=== PATIENT | female | born 1990 | race Caucasian/White ===

== ENCOUNTER 2017-11-09 23:03 | Inpatient (IN) | payer MEDICAID ==
[~2017-11-09] VITALS: Ht 165.1 cm; Wt 79.8 kg
[2017-11-09] MEDS ORDERED: Magnesium 1GM/D5W 100ML PREMIX 200 ML IV ONE (23:11)
[2017-11-09] MEDS ORDERED: IPRATROPIUM NEB FS 0.5 MG/2.5 ML AMPUL.NEB ONE (23:17)
[2017-11-09] MEDS ORDERED: ALBUTEROL FS 2.5 MG/3 ML VIAL.NEB ONE (23:17)
--- NOTE | 2017-11-09 23:20 | NUR ---
VIRGEN 39 FROM [employer] THRU FOR SOB. HX ASTHMA, PER RA GAVE 0.5 EPI IM AND BRETHING TX VIA C PAP. PT NOTED TO BE AAOX2 IN SEVERE ACUTE DISTRESS. PT NOTED TO BE DIAPHORETIC AND AGITTATED. PT NEEDED TO BE HELD DOWN BY PARAMEDICS AND STAFF MEMBERS TO START AN IV PER MD MELÉNDEZ ORDERS. PT NOTED TO BE TACHYPNIC AT 32BREATHS PER MINUTE AND SPO2 91 ON RA. PT PLACED ON NC 3L/M PER MD'S ORDERS. PT MEDICATED PER MD'S ORDERS. RT BEDSIDE FOR BREATHING TREATMENT. BEDSIDE. PT PLACED ON GRINDING WHEEL OPERATOR AND POX. PT PLACED IN GOWN. PT SAFETY AND COMFORT MEASURES IN PLACE. WILL CONTINUE TO MONITO PT.
[2017-11-09 23:30] LABS: BASOPHILS # (AUTO) 0.1 /CMM (0.0-0.2); BASOPHILS % (AUTO) 0.5 % (0.0-2.0); EOSINOPHILS % (AUTO) 6.6 % (0.0-6.0); HEMATOCRIT 41 % (33-45); HEMOGLOBIN 13.6 g/dL (11.5-14.8); LYMPHOCYTES # (AUTO) 6.2 /CMM (0.8-4.8); LYMPHOCYTES % (AUTO) 32.8 % (20.0-44.0); MEAN CORPUSCULAR HEMOGLOBIN 27 PG (26.0-33.0); MEAN CORPUSCULAR HGB CONC 33 g/dl (31.0-36.0); MEAN CORPUSCULAR VOLUME 81 fL (82-100); MONOCYTES # (AUTO) 0.6 /CMM (0.1-1.30); MONOCYTES % (AUTO) 3.2 % (2.0-12.0); NEUTROPHILS # (AUTO) 10.7 /CMM (1.8-8.9); NEUTROPHILS % (AUTO) 56.9 % (43.0-81.0); PLATELET COUNT (AUTO) 344 /CMM (150-450); RDW COEFFICIENT OF VARIATION 14.7 (11.5-15.0); RED BLOOD CELL COUNT(AUTO) 5.11 MIL/uL (4.0-5.2); WHITE BLOOD COUNT (AUTO) 18.8 K/uL (4.3-11.0)
[2017-11-09] MEDS ORDERED: IV NS 0.9% 1,000 ML BAG IV ONE ×2 (23:30)
[2017-11-09] MEDS ORDERED: ALBUTEROL FS 2.5 MG/3 ML VIAL.NEB CONTNEB ONE (23:30)
[2017-11-09] MEDS ORDERED: FAMOTIDINE/PF INJ 20 MG/2 ML VIAL IV ONE ×2 (23:30)
[2017-11-09] MEDS ORDERED: IPRATROPIUM NEB FS 0.5 MG/2.5 ML AMPUL.NEB NEB ONE (23:30)
[2017-11-09] MEDS ORDERED: DEXAMETHASONE SOD PHOSPHATE 4 MG/ML VIAL IM ONE (23:30)
[2017-11-09] MEDS ORDERED: EPINEPHRINE (1:1000) MDV 30 MG/30ML VIAL SUBCUT ONE (23:30)
[2017-11-09 23:41] LABS: CALCIUM, SERUM 8.4 mg/dL (8.5-10.1); CREATININE 0.9 mg/dL (0.6-1.3); POTASSIUM 3.7 mmol/L (3.5-5.1)
[2017-11-09 23:47] LABS: ALBUMIN 3.5 g/dL (3.4-5.0); BILIRUBIN,TOTAL 0.2 mg/dL (0.2-1.0)
--- NOTE | 2017-11-10 00:01 | NUR ---
PT NOTED TO BE IN NO DISTRESS AT THIS TIME. VSS. PT SAFETY AND COMFORT MEASURES IN PLACE. PT IS AAOX4. SKIN WNL. PT STATES HER BREATHING HAS IMPROVED. BREATH SOUNDS AUSCULTATED IN ALL [place]. MADE AWARE. WILL CONTINUE TO MONITOR PT
[2017-11-10] MEDS ORDERED: EPINEPHRINE (1:1000) 1 MG/ML AMPUL ONE (00:04)
[2017-11-10] MEDS ORDERED: DEXAMETHASONE SOD PHOSPHATE 10 MG/ML VIAL ONE (00:04)
[2017-11-10] MEDS ORDERED: Magnesium 1GM/D5W 100ML PREMIX 200 ML IV ONE (00:04)
--- NOTE | 2017-11-10 00:30 | NUR ---
PER [facility] AIR[employer]FT NAVIGATOR DASIA "YOU CAN ADMIT HERE IN YOUR HOSPITAL AND I GIVE YOU A VERBAL AUTHORIZATION UNDER [employer]".
[2017-11-10] MEDS ORDERED: CHOL20004 PO (00:34)
[2017-11-10] MEDS ORDERED: ALBU0.633 NEB (00:34)
--- NOTE | 2017-11-10 00:34 | NUR ---
MD ESTRADA SPEAKING WITH MD CARNEY
--- NOTE | 2017-11-10 00:51 | NUR ---
REPORT GIVEN TO PREPARING BOX TENDERCORTEZ TENORIO FOR IGLES[place]
[2017-11-10 01:30] VITALS: BP 137/65
[2017-11-10] MEDS ORDERED: ALBUTEROL FS 2.5 MG/0.5 ML VIAL.NEB NEB PRN (01:30)
[2017-11-10] MEDS ORDERED: IPRATROPIUM NEB FS 0.5 MG/2.5 ML AMPUL.NEB NEB PRN (01:30)
[2017-11-10] MEDS ORDERED: ACETAMINOPHEN 650 MG/20.3 ML UDC PO PRN (01:30)
[2017-11-10] MEDS: ALBUTEROL FS 2.5 MG/0.5 ML VIAL.NEB NEB SCH ×3 (01:30→12:32)
[2017-11-10] MEDS: IPRATROPIUM NEB FS 0.5 MG/2.5 ML AMPUL.NEB NEB SCH ×3 (01:30→12:32)
[2017-11-10] MEDS ORDERED: Potassium Chloride 20 MEQ in IV D5/0.45 NACL 1,000 ML IV PRN (01:30)
--- NOTE | 2017-11-10 02:05 | NUR ---
PT REFUSED BREATHING TX. SHE SAID SHE WILL TAKE THE 7:30AM TX. RN NOTIFIED.
[2017-11-10] MEDS ORDERED: IV PREMIX D5 1/2NS + KCL 1,000 ML IV ONE (02:34)
[2017-11-10 04:00] VITALS: BP 112/65
[2017-11-10] MEDS ORDERED: methylPREDNISolone SOD SUCC 125 MG/2ML VIAL IV SCH ×2 (05:00→13:00)
[2017-11-10 06:08] LABS: HEMATOCRIT 40 % (33-45); HEMOGLOBIN 13.1 g/dL (11.5-14.8); LYMPHOCYTES # (AUTO) 0.6 /CMM (0.8-4.8); LYMPHOCYTES % (AUTO) 3.8 % (20.0-44.0); MEAN CORPUSCULAR HEMOGLOBIN 27 PG (26.0-33.0); MEAN CORPUSCULAR HGB CONC 33 g/dl (31.0-36.0); MEAN CORPUSCULAR VOLUME 81 fL (82-100); MONOCYTES # (AUTO) 0.1 /CMM (0.1-1.30); MONOCYTES % (AUTO) 0.3 % (2.0-12.0); NEUTROPHILS # (AUTO) 15.6 /CMM (1.8-8.9); NEUTROPHILS % (AUTO) 95.9 % (43.0-81.0); PLATELET COUNT (AUTO) 275 /CMM (150-450); RDW COEFFICIENT OF VARIATION 14.9 (11.5-15.0); RED BLOOD CELL COUNT(AUTO) 4.89 MIL/uL (4.0-5.2); WHITE BLOOD COUNT (AUTO) 16.3 K/uL (4.3-11.0)
[2017-11-10 06:23] LABS: CALCIUM, SERUM 8.9 mg/dL (8.5-10.1); CREATININE 0.9 mg/dL (0.6-1.3); POTASSIUM 4.3 mmol/L (3.5-5.1)
--- NOTE | 2017-11-10 07:15 | NUR ---
[employer] INVESTIGATOR INITIAL NOTES PT COMFORTABLE, RESTING IN BED, AWAKE AND ORIENTED X4 T[place] SPEAKING, ON RA SAT ABOVE 95%, NO DISTRESS OR SOB NOTED AT THIS TIME, RT AC 18 G IV SITE RUNNING FLUIDS WITH NO INFILTRATION OR REDNESS NOTED AT THIS TIME, PT STATES WOULD LIKE TO GO HOME SOON POSSIBLE, BED LOW AND LOCKED, SIDE RAILS X2, CALL LIGHT WITHIN REACH, WILL CONTINUE TO MONITOR.
[2017-11-10] MEDS ORDERED: ALBU18HF2 IH (07:37)
[2017-11-10] MEDS ORDERED: CHOL100044 PO (07:37)
[2017-11-10] MEDS ORDERED: ALBU2.5V13 IH (07:37)
--- NOTE | 2017-11-10 07:51 | NUR ---
RN/TELE NOTES: NO ACUTE CHANGES NOTED DURING THIS SHIFT. REPORT GIVEN TO AM NURSE FOR IGLESIA.
[2017-11-10 08:00] VITALS: BP 123/73
[2017-11-10] MEDS ORDERED: FLUT1DIS3 INH (08:46)
[2017-11-10 12:00] VITALS: BP 125/84
--- NOTE | 2017-11-10 12:55 | NUR ---
SOUND RECORDIST ENDING NOTES PT STABLE AND READY FOR DC, PT LEFT VIA WALKING REFUSED WHEELCHAIR, EXIT CARE PROVIDED, DC PAPERWORK SIGNED AND COMPLETED. IV REMOVED, NO REDNESS OR INFILTRATION NOTED. TELE BOX REMOVED, ID BAND REMOVED, PT AWARE IF SHOULD NOT TAKE ANY STEROID MEDICATIONS AT THIS TIME, PT WILL FOLLOW UP WITH OWN DOCTOR REGARDING , WILL CONTINUE CARE AT HOME.
== END 2017-11-10 13:11 | disposition home or self-care (01) | DRG 133 ==
LOC: ER 23:11 → TELE1 11-10 00:59
PROVIDERS: ADMIT Internal Medicine; ATTEND Internal Medicine
DX: J96.00 Acute respiratory failure, unspecified whether with hypoxia or hypercapnia (principal); J45.901 Unspecified asthma with (acute) exacerbation
CPT/HCPCS: 36415; 71045-TC; 80048-TC; 80076-TC; 84703-TC; 85025-TC; 87081-TC; A4606; J0171; J1100; J2930; J3475; J3480; J3490; J7030; Z7610